=== PATIENT | female | born 1950 | race Caucasian/White ===

== ENCOUNTER 2020-08-19 11:09 | Day surgery (SDC) | payer MEDICARE, OTHER ==
[~2020-08-19] VITALS: Ht 170.2 cm; Wt 105.9 kg
[2020-08-19 11:40] LABS: CALC OSMOLALITY 285 mosm/kg (275-300); CHLORIDE - SERUM 107 mmol/L (98-107); CREATININE - SERUM 0.7 mg/dL (0.6-1.3); GLUCOSE 110 mg/dL (74-106); POTASSIUM - SERUM 3.9 mmol/L (3.5-5.1); SODIUM 142 mmol/L (136-145); UREA NITROGEN 19 mg/dL (7-18); eGFR NON AFRICAN AMERICAN 88 mL/min (90-120)
[2020-08-19 12:01] LABS: BASOPHILS 0.4 % (0-2); EOSINOPHILS 0.2 % (0-7); HEMATOCRIT 40.1 % (36.0-48.0); HEMOGLOBIN 12.6 g/dL (12-16); IMMATURE GRANULOCYTES 0.2 % (0-5); LYMPHOCYTES 30.4 % (15-50); MCH 26.6 pg (26.0-34.0); MCHC 31.4 g/dL (31.0-37.0); MCV 84.6 fL (80.0-100.0); MONOCYTES 5.7 % (2-11); NEUTROPHIL ABS# 3.12 10x3/uL (1.56-6.13); NEUTROPHILS 63.1 % (40-80); PLATELET COUNT 242 10x3/uL (130-400); RBC 4.74 10x6/uL (4.00-5.40); RDW 15.1 % (11.5-14.5); WBC 4.9 10x3/uL (4.8-10.8)
[2020-08-19 12:43] VITALS: Ht 170.2 cm; Wt 105.9 kg
[2020-08-19] MEDS ORDERED: EFFEXOR37.5 MG (13:09)
[2020-08-19] MEDS ORDERED: PEPCID AC20 MG PO (13:10)
[2020-08-19] MEDS ORDERED: TOPROL XL100 MG PO (13:10)
[2020-08-19] MEDS ORDERED: VALSARTAN-HCTZ1 EAC3 (13:11)
[2020-08-19] MEDS ORDERED: LIPITOR40 MG PO (13:11)
[2020-08-19] MEDS ORDERED: XANAX1 MG PO (13:12)
--- NOTE | 2020-08-19 16:33 | NUR ---
DC INSTRUCTIONS GIVEN TO PT. STATES UNDERSTANDING. DC'D IV CATH FULLY INTACT. WILL DC SHORTLY.
--- NOTE | 2020-08-19 16:41 | NUR ---
PT LEFT UNIT VIA WC AT [id number]
--- NOTE | 2020-08-20 09:03 | OP ---
PATIENT NAME: STERLING LUCIO MEDICAL RECORD: [id number] :54 LOCATION:D.OPS ADMISSION DATE: SURGEON: EVER HAMPTON MD DATE OF OPERATION: 08/19/2020 PREOPERATIVE DIAGNOSIS: Recurrent squamous papilloma of the esophagus. POSTOPERATIVE DIAGNOSIS: Recurrent squamous papilloma of the esophagus with several other papillomatous areas best seen with narrow band imaging. PROCEDURE: 1. Esophagogastroduodenoscopy with cold endoscopic biopsies of the antrum to rule out H. pylori. 2. Endoscopic ablation of esophageal papillomas with the argon plasma fruit farmworker. SURGEON: Ever Hampton MD DIRECTOR IMAGING: None. BLOOD LOSS: Minimal. ANESTHESIA: IV sedation. COMPLICATIONS: None. The risks, possible complications, and alternatives of the procedure were explained to the patient. She elects to proceed. ENDOSCOPIC COURSE: The patient was conveyed to the endoscopy suite electively on 08/19/2020. IV sedation was induced by the anesthesia staff. A bite block was inserted. A gastroscope was inserted into the mouth. It was advanced easily into the hypopharynx. Esophagus was easily intubated as were the stomach and duodenum. Upon withdrawal, retroflexed and angulus views were obtained. Antral biopsies were obtained. There was no evidence of persistence or recurrence of the patient's peptic ulcer disease. I withdrew into the esophagus. Utilizing narrow band imaging, I was able to identify about a dozen what appeared to be squamous papillomas. I did not biopsy any of these. I did, however ablate them with the argon plasma fruit farmworker utilizing the esophageal stenting in a forced mode. Next, the endoscope was then withdrawn under direct vision. The patient was then conveyed back to her room. I will see her in the office in 2 to 3 weeks to review the results of the antral biopsies. I will plan for a repeat upper endoscopy with the argon plasma fruit farmworker in 1 year. TRANSINT:[id number] Voice Confirmation ID: [id number] DOCUMENT ID: [id number] OPERATIVE REPORT [id number] STERLING LUCIO ROBERT MD at 0903 CC: [id number] DICTATION DATE: 08/19/201812 WATER TAXI OPERATOR: 08/20/20 0123 [facility] 08/19/20 [place] [address]
== END 2020-08-19 16:41 | disposition home or self-care (01) ==
LOC: D.OPS 11:09
PROVIDERS: Anesthesiology; ATTEND Surgery
DX: D13.0 Benign neoplasm of esophagus (principal); K29.80 Duodenitis without bleeding; I10 Essential (primary) hypertension; E78.5 Hyperlipidemia, unspecified

== ENCOUNTER → 2020-09-15 09:55 | Outpatient (CLI) | payer MEDICARE, OTHER ==
[2020-08-19 12:43] VITALS: BMI 36.6
[~2020-09-15 09:55] MED LIST: EFFEXOR37.5 MG; LIPITOR40 MG PO; PEPCID AC20 MG PO; TOPROL XL100 MG PO; VALSARTAN-HCTZ1 EAC3; XANAX1 MG PO
== END | disposition home or self-care (01) ==
LOC: D.CT 08:30
PROVIDERS: ATTEND Nurse Practitioner
DX: R10.9 Unspecified abdominal pain (principal)